=== PATIENT | female | born 1985 | race Caucasian/White ===

== ENCOUNTER 2022-11-04 19:06 | Emergency (ER) | payer OTHER ==
[~2022-11-04] VITALS: Ht 177.8 cm; Wt 108.9 kg
[2022-11-04 19:21] VITALS: BP 111/54
--- NOTE | 2022-11-04 20:00 | NUR ---
boyfriend at the bedside
--- NOTE | 2022-11-04 20:00 | NUR ---
c/o weakness and feeling dehydrated x 2 days. per pt, had heavy bleeding with menstrual period that ended today. pmhx: appendectomy, tonsillectomy, 3 c sections, gallstone removal. denies allergies.
--- NOTE | 2022-11-04 20:17 | NUR ---
PT TO BED 2 AMBULATORY
[2022-11-04 20:26] LABS: APPEARANCE,URINE CLEAR (CLEAR); BILIRUBIN,URINE 1+ (NEGATIVE); BLOOD, URINE 1+ (NEGATIVE); COLOR,URINE YELLOW (YELLOW); LEUKOCYTE ESTERASE ,URINE NEGATIVE (NEGATIVE); NITRITE, URINE NEGATIVE (NEGATIVE); UGLUCOSE NEGATIVE (NEGATIVE)
--- NOTE | 2022-11-04 20:38 | NUR ---
covid swab was sent to lab
[2022-11-04 20:53] LABS: RBC,URINE 0-5 /HPF (0-5); WBC,URINE 0-5 /HPF (0-5)
[2022-11-04 20:54] LABS: FINE GRANULAR CASTS,URINE 0-10 /LPF (None Seen)
--- NOTE | 2022-11-04 21:56 | NUR ---
PATIENT LEFT WITHOUT BEING SEEN BY DR. CUNNINGHAM. NO FURTHER CARE PROVIDED FOR PATIENT.
== END 2022-11-04 21:56 | disposition left against medical advice (07) ==
LOC: MED 19:06
DX: R53.1 Weakness (principal); E86.0 Dehydration; Z20.822 Contact with and (suspected) exposure to COVID-19; Z53.21 Procedure and treatment not carried out due to patient leaving prior to being seen by health care provider
CPT/HCPCS: 81001; 81025; 99281

== ENCOUNTER 2023-10-21 14:59 | Emergency (ER) | payer BC, OTHER ==
[~2023-10-21] VITALS: Ht 177.8 cm; Wt 117.9 kg
[2023-10-21 15:00] VITALS: BP 109/63; PULSE 70; RESP 18; TEMP 97.9; O2SAT 98
[2023-10-21 15:38] LABS: APPEARANCE,URINE CLEAR (CLEAR); BILIRUBIN,URINE NEGATIVE (NEGATIVE); BLOOD, URINE NEGATIVE (NEGATIVE); COLOR,URINE YELLOW (YELLOW); LEUKOCYTE ESTERASE ,URINE NEGATIVE (NEGATIVE); NITRITE, URINE NEGATIVE (NEGATIVE); PROTEIN,URINE NEGATIVE (NEGATIVE); UGLUCOSE NEGATIVE (NEGATIVE); UROBILINOGEN,URINE 0.2 EU/dL (0.2 - 1)
[2023-10-21 16:21] LABS: ANION GAP 14.3 (8-16); CALCIUM 8.4 mg/dL (8.5-10.1); CARBON DIOXIDE 25.6 mmol/L (21-32); CREATININE 0.8 mg/dL (0.6-1.3); POTASSIUM 3.9 mmol/L (3.5-5.1)
[2023-10-21 16:22] LABS: BASOPHILS % (AUTO) 0.3 % (0.0-2.0); EOSINOPHILS # (AUTO) 0.3 K/uL (0-0.4); HEMATOCRIT 38.3 % (36-48); HEMOGLOBIN 12.9 g/dL (12.0-16.0); LYMPHOCYTES # (AUTO) 1.2 K/uL (2.5-16.5); LYMPHOCYTES % (AUTO) 11.2 % (20.5-51.1); MEAN CORPUSCULAR HEMOGLOBIN 31 pg (27-31); MEAN CORPUSCULAR HGB CONC 34 g/dL (33-37); MEAN CORPUSCULAR VOLUME 90.9 fL (80-94); MONOCYTES # (AUTO) 0.7 K/uL (0.8-1.0); NEUTROPHILS # (AUTO) 8.4 K/uL (1.8-7.7); NEUTROPHILS % (AUTO) 78.5 % (42.2-75.2); PLATELET COUNT (AUTO) 227 K/uL (140-450); RED BLOOD CELL COUNT(AUTO) 4.21 MIL/uL (4.20-5.40); RED CELL DISTRIBUTION WIDTH 14.6 % (11.6-13.7); WHITE BLOOD COUNT (AUTO) 10.7 K/uL (4.8-10.8)
[2023-10-21 16:24] LABS: ALBUMIN 3.8 g/dL (3.4-5.0); BILIRUBIN,DIRECT 0.1 mg/dL (0.0-0.3); TOTAL BILIRUBIN 0.4 mg/dL (0.0-1.0); TOTAL PROTEIN, SERUM 7.1 g/dL (6.4-8.2)
[2023-10-21] MEDS ORDERED: KETOROLAC 30 MG/ML VIAL ONE (17:48)
[2023-10-21] MEDS: ACETAMINOPHEN 325 MG TAB PO ONE (18:00)
[2023-10-21] MEDS: KETOROLAC 30 MG/ML VIAL IVP ONE (18:02)
[2023-10-21 18:18] VITALS: BP 104/65; PULSE 62; RESP 18; TEMP 97.9; O2SAT 99
[2023-10-21] MEDS ORDERED: LORazepam 2 MG/ML VIAL ONE (18:52)
== END 2023-10-21 18:18 | disposition home or self-care (01) ==
LOC: MED 14:59
DX: R10.31 Right lower quadrant pain (principal); R30.0 Dysuria; Z79.899 Other long term (current) drug therapy; Z90.49 Acquired absence of other specified parts of digestive tract
CPT/HCPCS: 36415; 74176; 76856; 80048; 80076; 81003; 81025; 83690; 85025; 93976; 96374; 99285; J1885; J2060

== ENCOUNTER 2024-04-25 22:02 | Emergency (ER) | payer BC, MEDICAID, OTHER ==
[~2024-04-25] VITALS: Ht 177.8 cm; Wt 108.9 kg
[2024-04-25 22:07] VITALS: BP 108/59; PULSE 80; RESP 20; TEMP 97.9; O2SAT 98
[2024-04-25 22:35] VITALS: O2SAT 98
[2024-04-25 22:56] LABS: APPEARANCE,URINE CLEAR (CLEAR); BILIRUBIN,URINE NEGATIVE (NEGATIVE); BLOOD, URINE NEGATIVE (NEGATIVE); COLOR,URINE YELLOW (YELLOW); LEUKOCYTE ESTERASE ,URINE NEGATIVE (NEGATIVE); NITRITE, URINE NEGATIVE (NEGATIVE); PROTEIN,URINE NEGATIVE (NEGATIVE); UGLUCOSE NEGATIVE (NEGATIVE); UROBILINOGEN,URINE 0.2 EU/dL (0.2 - 1)
[2024-04-25 23:08] LABS: BACTERIA,URINE OCCASSIONAL /HPF (None Seen); RBC,URINE 0-5 /HPF (0-5); SQUAMOUS EPITHELIAL CELL,UR 4-10 (MOD) /LPF (0-3 (FEW)); WBC,URINE 0-5 /HPF (0-5)
[2024-04-25] MEDS: KETOROLAC 30 MG/ML VIAL IVP ONE (23:51)
[2024-04-26 00:29] VITALS: O2SAT 98
[2024-04-26] MEDS ORDERED: METH-1681 PO (00:46)
[2024-04-26] MEDS ORDERED: ACET500T99 PO (00:46)
[2024-04-26 01:02] VITALS: BP 108/59; PULSE 80; RESP 20; TEMP 97.9; O2SAT 98
== END 2024-04-26 01:01 | disposition home or self-care (01) ==
LOC: MED 22:02
DX: M54.50 Low back pain, unspecified (principal); R30.9 Painful micturition, unspecified; Z79.899 Other long term (current) drug therapy
CPT/HCPCS: 81001; 81025; 96374; 99285; J1885

== ENCOUNTER 2024-04-29 21:29 | Emergency (ER) | payer MEDICAID ==
[~2024-04-29] VITALS: Ht 177.8 cm; Wt 112.9 kg
[~2024-04-29 21:29] MED LIST: ACET500T99 PO; METH-1681 PO
[2024-04-29 21:38] VITALS: BP 93/49; PULSE 79; RESP 18; TEMP 98; O2SAT 99
[2024-04-29 22:02] LABS: APPEARANCE,URINE CLEAR (CLEAR); BILIRUBIN,URINE NEGATIVE (NEGATIVE); BLOOD, URINE NEGATIVE (NEGATIVE); COLOR,URINE YELLOW (YELLOW); LEUKOCYTE ESTERASE ,URINE 1+ (NEGATIVE); NITRITE, URINE NEGATIVE (NEGATIVE); PH,URINE 6.5 (5.0-9.0); PROTEIN,URINE NEGATIVE (NEGATIVE); UGLUCOSE NEGATIVE (NEGATIVE); UROBILINOGEN,URINE 0.2 EU/dL (0.2 - 1)
[2024-04-29 22:04] LABS: BACTERIA,URINE 10-30 (MOD) /HPF (None Seen); RBC,URINE 0-5 /HPF (0-5); SQUAMOUS EPITHELIAL CELL,UR 4-10 (MOD) /LPF (0-3 (FEW))
== END 2024-04-29 22:16 | disposition left against medical advice (07) ==
LOC: MED 21:29
DX: N39.8 Other specified disorders of urinary system (principal); Z53.21 Procedure and treatment not carried out due to patient leaving prior to being seen by health care provider
CPT/HCPCS: 81001; 81025; 87086; 87491